=== PATIENT | female | born 1945 | race Caucasian/White ===

== ENCOUNTER 2022-04-04 14:54 | Inpatient (IN) ==
[2022-04-04] MEDS ORDERED: DOCUSATE SODIUM 100 MG CAP PO PRN (21:48)
[2022-04-04] MEDS ORDERED: MAGNESIUM HYDROXIDE SUSP 30 ML UDC PO PRN (21:48)
[2022-04-04] MEDS ORDERED: GLUCOSE 40% GEL 15 GM TUBE PO PRN (21:48)
[2022-04-04] MEDS ORDERED: oxyCODONE HCL IR 5 MG TAB (IMMEDIATE RELEASE) PO PRN (21:48)
[2022-04-04] MEDS ORDERED: MoRPHine SULFATE 2 MG/ML CARP IV PRN (21:48)
[2022-04-04] MEDS ORDERED: DEXTROSE 50% 50 ML SYRINGE IV PRN (21:48)
[2022-04-04] MEDS ORDERED: GLUCAGON FOR INJ 1 MG VIAL SQ PRN (21:48)
[2022-04-04] MEDS ORDERED: GLUCOSE 10 TAB/TUBE PO PRN (21:48)
[2022-04-04] MEDS ORDERED: NALOXONE HCL 0.4 MG/1 ML VIAL/CARP IV PRN (21:48)
[2022-04-04] MEDS ORDERED: ACETAMINOPHEN 325 MG TAB PO PRN (21:48)
[2022-04-04] MEDS ORDERED: MoRPHine SULFATE 4 MG/ML 1 ML CARP\\VIAL IV PRN (21:48)
[2022-04-04] MEDS ORDERED: ONDANSETRON INJ 2 MG/ML 2 ML VIAL IV PRN (21:48)
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
[2022-04-04] MEDS ORDERED: LACTATED RINGER'S 1,000 ML IV SCH (22:00)
[2022-04-04] MEDS ORDERED: Patient's ALLERGY Info needs ENTERED SCH (22:30)
[2022-04-04] MEDS ORDERED: LANTUS PER UNIT CHARGE SQ STA (22:55)
[2022-04-05] MEDS ORDERED: Nursing to Pharmacy Communication SCH ×2 (01:00→22:45)
[2022-04-05 01:01] LABS: Appearance Urine Clear (Clear); Bacteria Urine Automated Negative (Negative); Bilirubin Urine Negative (Negative); Blood Urine 2+ (Negative); Color Urine Yellow; Epithelial Cell Urine Auto 20-30 /lpf (0-5); Glucose Urine UA 3+ (Negative); Ketones Urine 3+ (Negative); Leukocyte Esterase Urine Trace (Negative); Nitrite Urine Negative (Negative); Protein Urine Negative (Negative); Specific Gravity Urine 1.024 (1.000-1.030); Urobilinogen Urine Negative (Negative)
[2022-04-05] MEDS: INSULIN ASPART PER UNIT SC SCH ×4 (06:28→22:25)
[2022-04-05 07:30] LABS: Basophils # (auto) 0.04 K/uL (0-0.2); Basophils % (auto) 0.6 %; Eosinophils # (auto) 0.09 K/uL (0-0.50); Eosinophils % (auto) 1.4 %; Hematocrit (blood only) 34.2 % (34.1-44.9); Hemoglobin 11.6 g/dl (12.0-16.0); Immature Granulocytes # (auto) 0.05 K/uL (0.00-0.02); Immature Granulocytes % (auto) 0.8 %; Lymphocytes # (auto) 0.79 K/uL (1.2-3.4); Lymphocytes % (auto) 12.5 %; Mean Corpuscular Hemoglobin 31.3 pg (25.0-34.0); Mean Corpuscular Hgb Conc 33.9 g/dL (32.0-36.0); Mean Corpuscular Volume 92.2 fL (80.0-100.0); Mean Platelet Volume 10.5 fL (9.4-12.3); Monocytes # (auto) 0.87 K/uL (0.24-0.82); Monocytes % (auto) 13.8 %; Neutrophils # (auto) 4.48 K/uL (1.4-6.5); Neutrophils % (auto) 70.9 %; Platelet Count 178 K/uL (130-400); RDW Coefficient of Variation 12.5 % (11.5-14.5); RDW Standard Deviation 41.4 fL (36.4-46.3); Red Blood Count 3.71 M/uL (3.93-5.22); White Blood Count 6.32 K/ul (4.8-10.8)
[2022-04-05] MEDS ORDERED: INSULIN ASPART PER UNIT SC SCH (07:30)
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
[2022-04-05 07:57] LABS: BUN Creatinine Ratio 19.7 (10-20); Calcium 9.8 mg/dl (8.5-10.1); Creatinine Clr Calc Pharmacy 59.1 ml/min; Est GFR (African American) 98.8 ml/min; Est GFR (Non-African American) 85.2 ml/min; Potassium 3.7 mmol/L (3.5-5.1)
--- NOTE | 2022-04-05 08:02 | Hospitalist Progress Note ---
Date of Service April 05, 2022 Assessment & Plan (1) Closed left hip fracture: Plan: 77yo female with history of DM, HTN presenting from outside facility with left intertrochanteric hip fracture following a ground level fall. Patient states that she has poor balance and falls on occasion. Pain is well controlled. Neurovascularly intact. Images to be loaded to [employer] Type/screen Ortho consulted NPO for L trochanteric femoral nailing Pain control, antiemetics prn Bowel regimen -- colace, senna prn Patient w/ nausea after foot reconstruction -- asked anesthesiology about possible need for scop patch. they will monitor/address Per RCRI criteria, patient is at low risk for cardiac complications following surgical intervention. She may proceed to surgery with no additional testing. PT/OT consults after surgery, likely need for rehab. Monitor evals/alert CM as needed (2) Hypertension: Plan: Blood pressure mildly elevated at 163/78. No symptoms. Patient takes Lisinopril 5mg daily Holding lisinopril for now, pain control Monitor, resume lisinopril in AM if BP/cr acceptable (3) Diabetes: Plan: Elevated blood sugar on admit 237. Patient manages her diabetes with Metformin as well as Glyburide. believes her last A1c ~7 Hold outpatient meds and utilize ISS while inpatient, glargine 5u BID currently BSGs acceptable and monitor Monitor (4) Anemia: Plan: Chronic, hgb 11.6 -- will monitor Patient takes Fe supplementation at home but will hold acutely to prevent constipation Monitor CBC Plan Ppx - SCDs to bilateral LE, holding chemical for now but order after surgery NPO for surgery this afternoon Admission and Anticipated Discharge Date Admission Date: April 04, 2022 Subjective Patient evaluated this morning. Seen by orthopedics, awaiting surgery this afternoon. Not having much pain at all resting in bed but increased with movement/attempts at standing to her left hip. Passing gas but no BM. Not much to eat last 2 days due to current issue. Discussed PT/OT after surgery and possible rehab pending course. No fever/chills, chest pain, shortness of breath, abdominal pain, nausea or vomiting. Of note, patient with prior foot reconstruction and had nausea after/vomiting --> contacted Dr Hylton from anesthesiology to consider scopolamine patch vs alte rnative in operative period. They will address when they get her down for surgery. Believes her last A1c was in the 7s possibly, not on insulin therapy. Questions/concerns addressed at this time. Review of Systems Review of Systems: All systems reviewed & are unremarkable except as noted in HPI & below Physical Exam Physical Exam: General: WD/WN female resting comfortable in bed, NAD HEENT: head atraumatic, normocephalic, trachea midline without deviation, mmm Resp: CTAB, no w/c/r, on room air CV: RRR, no m/r/g, no calf edema/tenderness, cap refill wnl GI: +BS, soft, nontender : russell with clear yellow urine draining MSK/Neuro: left lower extremity shortened and externally rotated. no rom taken, mild L knee effusion/non-tender. NVI, pulses palpable, calves nontender Psych: aox3 skin: warm, dry Results & Data Results & Data ([facility]) Vital Signs (Past 12 Hours) Vital Signs Temp Pulse Resp BP Pulse Ox Pulse Ox O2 Del Method 04/05/22 07:33 37.1 C 85 16 150/78 H 94 Room Air 04/05/22 05:50 93 04/04/22 21:49 95 04/04/22 23:22 36.7 C 86 18 163/78 H 93 Room Air 04/04/22 21:00 37 C 16 172/91 H 95 Room Air O2 Del Method 04/05/22 07:33 04/05/22 05:50 Room Air 04/04/22 21:49 Room Air 04/04/22 23:22 04/04/22 21:00 Laboratory Results 04/05/22 04/05/22 04/05/22 Range/Units 07:05 07:05 07:05 WBC 6.32 (4.8-10.8) K/ul RBC 3.71 L (3.93-5.22) M/uL Hgb 11.6 L (12.0-16.0) g/dl Hct 34.2 (34.1-44.9) % MCV 92.2 (80.0-100.0) fL MCH 31.3 (25.0-34.0) pg MCHC 33.9 (32.0-36.0) g/dL RDW Std Deviation 41.4 (36.4-46.3) fL RDW Coeff of Fabiana 12.5 (11.5-14.5) % Plt Count 178 (130-400) K/uL MPV 10.5 (9.4-12.3) fL Immature Gran % (Auto) 0.8 % Neut % (Auto) 70.9 % Lymph % (Auto) 12.5 % [place] % (Auto) 13.8 % Eos % (Auto) 1.4 % Baso % (Auto) 0.6 % Neut # (Auto) 4.48 (1.4-6.5) K/uL Lymph # (Auto) 0.79 L (1.2-3.4) K/uL [place] # (Auto) 0.87 H (0.24-0.82) K/uL Eos # (Auto) 0.09 (0-0.50) K/uL Baso # (Auto) 0.04 (0-0.2) K/uL Immature Gran # (Auto) 0.05 H (0.00-0.02) K/uL PT 11.0 (9.0-12.0) Seconds INR 1.0 (0.9-1.1) Sodium 138 (136-145) mmol/L Potassium 3.7 (3.5-5.1) mmol/L Chloride 104 (98-107) mmol/L Carbon Dioxide 27 (21-32) mmol/L Anion Gap 7 (3-11) BUN 13 (6-23) mg/dl Creatinine 0.66 (0.6-1.2) mg/dl Est Cr Clr Drug Dosing 59.1 ml/min Est GFR ( Amer) 98.8 ml/min Est GFR (Non-Af Amer) 85.2 ml/min BUN/Creatinine Ratio 19.7 (10-20) Glucose 167 H (70-99(Fasting)) mg/dl POC Glucose (70-99) mg/dl Calcium 9.8 (8.5-10.1) mg/dl Urine Color Urine Appearance (Clear) Urine pH (4.5-7.5) Ur Specific [place] (1.000-1.030) Urine Protein (Negative) Urine Glucose (UA) (Negative) Urine Ketones (Negative) Urine Blood (Negative) Urine Nitrite (Negative) Urine Bilirubin (Negative) Urine Urobilinogen (Negative) Ur Leukocyte Esterase (Negative) Urine WBC (Auto) (0-5) /hpf Urine RBC (Auto) (0-4) /hpf U Hyaline Cast (Auto) (0-5) /lpf U Epithel Cells (Auto) (0-5) /lpf Urine Bacteria (Auto) (Negative) Blood Type Antibody Screen 04/05/22 04/05/22 04/04/22 Range/Units 07:05 06:03 23:20 WBC (4.8-10.8) K/ul RBC (3.93-5.22) M/uL Hgb (12.0-16.0) g/dl Hct (34.1-44.9) % MCV (80.0-100.0) fL MCH (25.0-34.0) pg MCHC (32.0-36.0) g/dL RDW Std Deviation (36.4-46.3) fL RDW Coeff of Fabiana (11.5-14.5) % Plt Count (130-400) K/uL MPV (9.4-12.3) fL Immature Gran % (Auto) % Neut % (Auto) % Lymph % (Auto) % [place] % (Auto) % Eos % (Auto) % Baso % (Auto) % Neut # (Auto) (1.4-6.5) K/uL Lymph # (Auto) (1.2-3.4) K/uL [place] # (Auto) (0.24-0.82) K/uL Eos # (Auto) (0-0.50) K/uL Baso # (Auto) (0-0.2) K/uL Immature Gran # (Auto) (0.00-0.02) K/uL PT (9.0-12.0) Seconds INR (0.9-1.1) Sodium (136-145) mmol/L Potassium (3.5-5.1) mmol/L Chloride (98-107) mmol/L Carbon Dioxide (21-32) mmol/L Anion Gap (3-11) BUN (6-23) mg/dl Creatinine (0.6-1.2) mg/dl Est Cr Clr Drug Dosing ml/min Est GFR ( Amer) ml/min Est GFR (Non-Af Amer) ml/min BUN/Creatinine Ratio (10-20) Glucose (70-99(Fasting)) mg/dl POC Glucose 169 H (70-99) mg/dl Calcium (8.5-10.1) mg/dl Urine Color Yellow Urine Appearance Clear (Clear) Urine pH 6.0 (4.5-7.5) Ur Specific [place] 1.024 (1.000-1.030) Urine Protein Negative (Negative) Urine Glucose (UA) 3+ H (Negative) Urine Ketones 3+ H (Negative) Urine Blood 2+ H (Negative) Urine Nitrite Negative (Negative) Urine Bilirubin Negative (Negative) Urine Urobilinogen Negative (Negative) Ur Leukocyte Esterase Trace H (Negative) Urine WBC (Auto) 10-30 H (0-5) /hpf Urine RBC (Auto) 10-30 H (0-4) /hpf U Hyaline Cast (Auto) 1-5 (0-5) /lpf U Epithel Cells (Auto) 20-30 H (0-5) /lpf Urine Bacteria (Auto) Negative (Negative) Blood Type AB Positive Antibody Screen NEGATIVE 04/04/22 Range/Units 22:29 WBC (4.8-10.8) K/ul RBC (3.93-5.22) M/uL Hgb (12.0-16.0) g/dl Hct (34.1-44.9) % MCV (80.0-100.0) fL MCH (25.0-34.0) pg MCHC (32.0-36.0) g/dL RDW Std Deviation (36.4-46.3) fL RDW Coeff of Fabiana (11.5-14.5) % Plt Count (130-400) K/uL MPV (9.4-12.3) fL Immature Gran % (Auto) % Neut % (Auto) % Lymph % (Auto) % [place] % (Auto) % Eos % (Auto) % Baso % (Auto) % Neut # (Auto) (1.4-6.5) K/uL Lymph # (Auto) (1.2-3.4) K/uL [place] # (Auto) (0.24-0.82) K/uL Eos # (Auto) (0-0.50) K/uL Baso # (Auto) (0-0.2) K/uL Immature Gran # (Auto) (0.00-0.02) K/uL PT (9.0-12.0) Seconds INR (0.9-1.1) Sodium (136-145) mmol/L Potassium (3.5-5.1) mmol/L Chloride (98-107) mmol/L Carbon Dioxide (21-32) mmol/L Anion Gap (3-11) BUN (6-23) mg/dl Creatinine (0.6-1.2) mg/dl Est Cr Clr Drug Dosing ml/min Est GFR ( Amer) ml/min Est GFR (Non-Af Amer) ml/min BUN/Creatinine Ratio (10-20) Glucose (70-99(Fasting)) mg/dl POC Glucose 237 H (70-99) mg/dl Calcium (8.5-10.1) mg/dl Urine Color Urine Appearance (Clear) Urine pH (4.5-7.5) Ur Specific [place] (1.000-1.030) Urine Protein (Negative) Urine Glucose (UA) (Negative) Urine Ketones (Negative) Urine Blood (Negative) Urine Nitrite (Negative) Urine Bilirubin (Negative) Urine Urobilinogen (Negative) Ur Leukocyte Esterase (Negative) Urine WBC (Auto) (0-5) /hpf Urine RBC (Auto) (0-4) /hpf U Hyaline Cast (Auto) (0-5) /lpf U Epithel Cells (Auto) (0-5) /lpf Urine Bacteria (Auto) (Negative) Blood Type Antibody Screen PG Care Time/CCT Total # of Minutes Spent Total Time Spent with Patient: Total time spent is greater than 50% in coordination of care (as documented) at patient's floor/unit and/or counseling patient: Coding Level of Care Code 86338 Subseq Hosp Care Lvl 2 Diagnoses Closed left hip fracture S72.002A Hypertension I10 Diabetes E11.9 Anemia D64.9
[2022-04-05] MEDS: LANTUS PER UNIT CHARGE SQ SCH ×2 (08:46→22:25)
--- NOTE | 2022-04-05 15:46 | Anesthesiology Consultation ---
Date of Service April 05, 2022 Assessment & Plan Chart Review Chart Review: Acceptable Risk for Surgery and Patient NOT seen in Pre Admission Testing Consults Requested none ASA ASA3 Proposed Anesthesia Anesthesia Type: General Risk / Benefits Reviewed With: PT / POA / Parent / Guardian, Accepts Plan and Informed Consent Obtained Additional Comments: covid test neg. History Surgery Operation Date: 04/05/22 09:20 Proposed Procedures p Left Troch Nailing - Eliel Franklin M.D. Height/Weight Height: 5 ft 1 in Weight: 59.506 kg Allergies Allergy/AdvReac Type Severity Reaction Status Date / Time No Known Allergies Allergy Unverified 04/04/22 22:40 Medications Home Medications Medication Instructions Recorded Confirmed Last Taken Aspir-81 81 mg PO DAILY 04/04/22 04/04/22 04/03/22 atorvastatin 20 mg tablet 20 mg PO HS 04/04/22 04/05/22 Unknown glimepiride 4 mg tablet 4 mg PO BID 04/04/22 04/04/22 Unknown latanoprost 0.005 % eye drops 1 drp ophthalmic (eye) HS 04/04/22 04/04/22 Unknown lisinopril 5 mg tablet 5 mg PO DAILY 04/04/22 04/04/22 Unknown metformin 1,000 mg tablet 1,000 mg PO BID 04/04/22 04/04/22 Unknown multivitamin 1 tab PO DAILY 04/04/22 04/04/22 Unknown Active Medications Generic Name Dose Route Start Last Admin Trade Name Freq PRN Reason Stop Dose Admin Acetaminophen 650 mg 04/04/22 21:48 04/04/22 23:16 Acetaminophen 325 Mg Tab PO 05/04/22 21:47 650 mg Q6H PRN Administration MILD pain 1,2,3 & Pre PT Insulin Aspart 0 units 04/05/22 06:00 04/05/22 12:17 Insulin Aspart Per Unit SC 05/05/22 05:59 Not Given Q6 BRANDON Insulin Glargine 5 units 04/05/22 09:00 04/05/22 08:46 Lantus Per Unit Charge SQ 05/05/22 08:59 5 units BID BRANDON Administration NPO Date Last Intake of Fluids: 04/04/22 Time Last Intake of Fluids: 14:30 Date Last Intake of Solids: 04/04/22 Time Last Intake of Solids: 14:30 Past Medical History Medical History Anemia Diabetes History of postoperative nausea Hypertension hyperlipidemia Exercise / Class Metabolic Activity III < 4 Walking/Shop/Light housework Past Family History Family History Other Cancer Past Surgical History Surgical History History of foot surgery Past Anesthesia History No Hx of Anesthesia Complications and No Family Hx of Anesthesia Complications History of PONV No Hx of Motion Sickness and History of PONV Social History Smoking Status: Never smoker Hx Alcohol Use: No Hx Substance Use: No Physical Exam Vital Signs Last Vital Signs Temp 37.3 C 04/05/22 15:24 Pulse 95 H 04/05/22 15:24 Resp 18 04/05/22 15:24 BP 144/90 H 04/05/22 15:24 Pulse Ox 95 04/05/22 15:24 O2 Del Method 04/05/22 15:24 Testing Laboratory Results 04/05/22 07:05 04/05/22 07:05 PT 11.0 Seconds (9.0-12.0) 04/05/22 07:05 INR 1.0 (0.9-1.1) 04/05/22 07:05 Urine Color Yellow 04/04/22 23:20 Urine Appearance Clear (Clear) 04/04/22 23:20 Urine pH 6.0 (4.5-7.5) 04/04/22 23:20 Ur Specific [place] 1.024 (1.000-1.030) 04/04/22 23:20 Urine Protein Negative (Negative) 04/04/22 23:20 Urine Glucose (UA) 3+ (Negative) H 04/04/22 23:20 Urine Ketones 3+ (Negative) H 04/04/22 23:20 Urine Nitrite Negative (Negative) 04/04/22 23:20 Ur Leukocyte Esterase Trace (Negative) H 04/04/22 23:20 Urine WBC (Auto) 10-30 /hpf (0-5) H 04/04/22 23:20 Urine RBC (Auto) 10-30 /hpf (0-4) H 04/04/22 23:20 U Hyaline Cast (Auto) 1-5 /lpf (0-5) 04/04/22 23:20 U Epithel Cells (Auto) 20-30 /lpf (0-5) H 04/04/22 23:20 Urine Bacteria (Auto) Negative (Negative) 04/04/22 23:20 Blood Type AB Positive 04/05/22 07:05 Antibody Screen NEGATIVE 04/05/22 07:05 04/05/22 04/05/22 12:00 06:03 POC Glucose 140 H 169 H Electrocardiogram Date: 04/04/22 Findings: + ST @ (at 119) Chest X-Ray Date: 04/04/22 Findings: + NAD and + other (large H/H)
[2022-04-05] MEDS ORDERED: LIDOCAINE 1% LOCAL 20 ML VIAL ONE (16:34)
[2022-04-05] MEDS ORDERED: BUPIVACAINE 0.5 % 5 MG/1 ML MPF 30ML VIAL ONE (16:34)
[2022-04-05] MEDS ORDERED: ceFAZolin 2,000 MG/15 ML IV PUSH IV ONE (17:12)
[2022-04-05] MEDS ORDERED: fentaNYL citrate 100 MCG/2 ML VIAL ONE ×2 (17:25→18:19)
[2022-04-05] MEDS ORDERED: PROPOFOL IV EMULSION 10 MG/ML 20 ML VIAL IV ONE (17:25)
[2022-04-05] MEDS ORDERED: MIDAZOLAM HCL 1 MG/ML 2ML VIAL ONE (17:26)
[2022-04-05] MEDS ORDERED: SUCCINYLCHOLINE CHLORIDE 20 MG/ML 10 ML VIAL IV ONE (18:09)
[2022-04-05] MEDS ORDERED: CISATRACURIUM BESYLATE IV SOLN 2 MG/ML 10 ML VIAL IV ONE (18:09)
[2022-04-05] MEDS ORDERED: PHENYLEPHRINE 100MCG/ML 5ML SYR ONE (18:10)
--- NOTE | 2022-04-05 18:20 | Communication Note ---
Date of Service: April 05, 2022 CDS Query Age-related osteoporotic fracture of the left hip NPO for surgical correction Vit D level in AM
[2022-04-05] MEDS ORDERED: ONDANSETRON INJ 2 MG/ML 2 ML VIAL ONE (18:37)
[2022-04-05] MEDS ORDERED: DEXAMETHASONE SOD INJ 4 MG/ML VIAL ONE (18:38)
[2022-04-05] MEDS ORDERED: NEOSTIGMINE METHYLSULFATE 1 MG/ML 10ML VIAL ONE (18:42)
[2022-04-05] MEDS ORDERED: GLYCOPYRROLATE 0.2 MG/ML VIAL ONE (18:42)
--- NOTE | 2022-04-05 19:05 | Operative Report ---
Post Operative Report Pre & Post Diagnosis Operation Date: 04/05/22 09:20 Pre-Op Diagnosis: Left hip intertrochanteric femur fracture Post-Op Diagnosis: Left hip intertrochanteric femur fracture I identified the patient and participated in the time-out.: Yes Procedure Operation Date: 04/05/22 09:20 Actual Procedures Left hip short cephalomedullary nailing for intertrochanteric femur fracture (25535) - Eliel Franklin M.D. Surgeon Eliel Franklin Program Manager Environmental Planning None Estimated Blood Loss 50 Findings Consistent with Post-Op Diagnosis Specimens None Drains None Anesthesia Type General Complications none Disposition Disposition: Recovery Room Indications Ms. Quevedo is a 77-year-old female who injured her left hip during a ground- level fall. History, clinical exam, and imaging were consistent with the above diagnosis. Risks, benefits, and alternatives of surgery were explained in detail. The patient understood all this and wished to proceed. Description of Procedure Implants: Synthes Short (170mm) 130 degree 11mm Trochanteric Fixation Nail, 11mm helical blade, 5mm distal locking screw Patient was identified in the preoperative holding area. Operative extremity was marked. Patient was then brought back to the operating room, and general anesthesia was induced without complication. Appropriate weight-based dose of Ancef was infused intravenously for antibiotic prophylaxis. Patient was then positioned on the fracture table with the traction apparatus. The nonoperative hip was flexed and placed into the well leg mosquera. Longitudinal traction was applied to the operative hip. Fracture reduction was then performed under fluoroscopic imaging. Once acceptable reduction had been achieved, the left hip was then prepped and draped in a standard sterile fashion using Chlorhexidine prep. I first made an incision just proximal to the greater trochanter in line with the femoral shaft axis, and split the fibers of the iliotibial band. I then bluntly palpated down to the greater trochanter and inserted the guidewire down to the tip of the greater trochanter. It was appropriately positioned on AP and lateral images, and then driven into the proximal femur. I then inserted the soft tissue protector down to the tip of the greater trochanter and then passed the entry reamer over top of the guidewire. It was advanced down towards the lesser trochanter to open the proximal femur. I then inserted the Synthes short TFN attached to the targeting arm into the proximal femur. I malleted it down to an appropriate depth for proper trajectory of the helical blade into the femoral head. Once the nail was at an appropriate depth, I then attached the targeting guide for the helical blade onto the targeting arm. Incision was made in line with the guide through the skin and iliotibial band. The guide sleeve was placed against the lateral cortex of the femur. Guidewire was then inserted through the guide and up into the femoral neck and head. I verified proper placement and trajectory under both AP and lateral images. I advanced the guidewire to the subchondral bone in the femoral head and verified proper depth on orthogonal images. I then measured the depth off of the guidewire. The drill for the helical blade was then set at an appropriate level to match the measured length. The drill was then advanced to the set depth. An appropriate length helical blade was selected and malleted into place over the guidewire. The fracture site was then compressed through the helical blade with the compression ring. I then deployed the set screw proximally to prevent rotation of the helical blade during fracture compression. Fracture compression was then applied using the compression ring on the helical blade targeting sleeve. I then made an incision for the distal locking screw in line with the drill guide through skin and iliotibial band. I then placed the drill sleeve down on the la teral cortex of the femur and drilled through the distal locking hole. Screw length was then measured off of the calibrated drill bit, and an appropriate length was selected and then inserted. The screw length was verified under fluoroscopic imaging. Final fluoroscopic images were then obtained to ensure proper hardware placement, screw length, and fracture reduction. The wounds were then copiously irrigated with sterile saline. I then closed the iliotibial band and deep dermal tissue with #0 Vicryl suture. Subcutaneous tissues closed with 3-0 Vicryl suture, and skin was closed with phil. Sterile dressings were then applied with Xeroform, sterile gauze, and foam tape. Drapes were then removed and traction apparatus was disconnected. The patient was awakened from general anesthesia, transferred over to the stretcher, and taken to the Post Anesthesia Care Unit in stable condition. There were no immediate complications from the procedure. I was present and scrubbed for the entire procedure. I attest to the content of the Intraoperative Record and any orders documented therein. Any exceptions are noted below.
[2022-04-05] MEDS ORDERED: ePHEDrine sulfate 50 MG/ML AMP IV PRN (19:10)
[2022-04-05] MEDS ORDERED: PROMETHAZINE HCL 12.5 MG in SODIUM CHLORIDE 0.9% 50 ML IV PRN (19:10)
[2022-04-05] MEDS ORDERED: ATROPINE SULFATE 0.1 MG/ML 10ML SYR IV PRN (19:10)
[2022-04-05] MEDS ORDERED: NALOXONE HCL 0.4 MG/1 ML VIAL/CARP IV PRN (19:10)
[2022-04-05] MEDS ORDERED: FLUMAZENIL 0.1 MG/1 ML 10 ML VIAL IV PRN (19:10)
[2022-04-05] MEDS ORDERED: fentaNYL citrate 100 MCG/2 ML VIAL IV PRN (19:10)
[2022-04-05] MEDS ORDERED: ONDANSETRON INJ 2 MG/ML 2 ML VIAL IV PRN (19:10)
[2022-04-05] MEDS ORDERED: LABETALOL HCL IV 5 MG/ML 20ML IV PRN (19:10)
--- NOTE | 2022-04-05 19:49 | Anesthesiology Progress Note ---
Date of Service April 05, 2022 Anesthesia Post Procedure Vital Signs Vital Signs: Temp Pulse Pulse Resp BP Pulse Ox Pulse Ox 04/05/22 19:40 94 H 19 155/85 H 97 04/05/22 19:30 92 H 23 155/91 H 97 04/05/22 19:20 99 H 21 145/75 H 90 04/05/22 19:10 97 H 21 163/81 H 95 04/05/22 19:02 36.5 C 103 H 23 155/73 H 97 04/05/22 15:24 37.3 C 95 H 18 144/90 H 95 04/05/22 07:33 37.1 C 85 16 150/78 H 94 04/05/22 05:50 93 04/04/22 21:49 95 04/04/22 23:22 36.7 C 86 18 163/78 H 93 04/04/22 21:00 37 C 16 172/91 H 95 O2 Del Method O2 Del Method O2 Flow Rate 04/05/22 19:40 Nasal Cannula 2 04/05/22 19:30 Nasal Cannula 2 04/05/22 19:20 Room Air 04/05/22 19:10 Oxymask 4 04/05/22 19:02 Oxymask 4 04/05/22 15:24 Room Air 04/05/22 07:33 Room Air 04/05/22 05:50 Room Air 04/04/22 21:49 Room Air 04/04/22 23:22 Room Air 04/04/22 21:00 Room Air Pain Intensity Left Hip: Pain Intensity: 3 Transfer of Care Handoff Completed per policy Notes Mental Status: alert / awake / arousable Patient Amnestic to Procedure: Yes Nausea / Vomiting: adequately controlled Pain: adequately controlled Airway Patency, RR, SpO2: stable & adequate BP & HR: stable & adequate Hydration State: stable & adequate Anesthetic Complications: no major complications apparent and Pt Satisfied with anesthetic care
--- NOTE | 2022-04-05 19:54 | XRay Report ---
LEFT HIP 2 VIEWS CLINICAL HISTORY: Postoperative examination. FINDINGS: AP and crosstable lateral views of the left hip are compared to study dated 04/04/2022. The skeletal structures are osteopenic. There has been intertrochanteric and intramedullary nail fixation of a comminuted intertrochanteric fracture with confucianism of near-anatomic alignment. A single cor tical lag screw transfixes the distal end of the nail. No new fracture is identified. The visualized left hemipelvis appears intact. Mild degenerative joint space narrowing is noted in the left hip. Ski n clips, soft tissue gas, and edema overlying the left hip are expected postoperative changes. IMPRESSION: Expected postoperative findings status post open reduction and internal fixation of a lef t proximal femoral fracture. Electronically signed by: Tim Claire M.D. 04/05/2022 7:53 PM
--- NOTE | 2022-04-05 19:56 | Fluoroscopy Report ---
INTRAOPERATIVE RADIOGRAPHS CLINICAL HISTORY: Open reduction and internal fixation of the left proximal femur. Fluoroscopy time: 64 seconds. FINDINGS: 4 spot fluoroscopic views of the left proximal femur are compared to radiographs dated 04/04. Intertrochanteric and intramedullary nails have been placed transfixing an intertrochanteric f racture of the left proximal femur with shinto of near-anatomic alignment. A single cortical lag screw transfixes the distal end of the intramedullary nail. The orthopedic hardware appears intact. IMPRESSION: Intraoperative images from open reduction and internal fixation of a left proximal femora l fracture as above. Electronically signed by: Tim Claire M.D. 04/05/2022 7:54 PM
[2022-04-05] MEDS: ATORVASTATIN 20 MG TAB PO SCH (22:06)
[2022-04-05] MEDS: LATANOPROST 0.005% OP SOLN 2.5 ML BTL OP SCH (22:06)
[2022-04-05] MEDS: DOCUSATE SODIUM/SENNA 50/8.6MG TAB PO SCH (22:06)
[2022-04-05] MEDS: ASPIRIN 81 MG ECTAB PO SCH (22:57)
[2022-04-06] MEDS ORDERED: INSULIN ASPART PER UNIT SC SCH
[2022-04-06 06:22] LABS: Hematocrit (blood only) 35.1 % (34.1-44.9); Hemoglobin 11.9 g/dl (12.0-16.0); Mean Corpuscular Hemoglobin 31.3 pg (25.0-34.0); Mean Corpuscular Hgb Conc 33.9 g/dL (32.0-36.0); Mean Corpuscular Volume 92.4 fL (80.0-100.0); Mean Platelet Volume 10.5 fL (9.4-12.3); Platelet Count 204 K/uL (130-400); RDW Coefficient of Variation 12.2 % (11.5-14.5); RDW Standard Deviation 41.6 fL (36.4-46.3); White Blood Count 10.88 K/ul (4.8-10.8)
[2022-04-06 07:00] LABS: BUN Creatinine Ratio 20.3 (10-20); Calcium 9.6 mg/dl (8.5-10.1); Creatinine Clr Calc Pharmacy 52.7 ml/min; Est GFR (African American) 90.6 ml/min; Est GFR (Non-African American) 78.1 ml/min; Magnesium 1.2 mg/dl (1.7-2.4)
[2022-04-06] MEDS: ASPIRIN 81 MG ECTAB PO SCH ×2 (08:29→20:34)
--- NOTE | 2022-04-06 08:33 | Hospitalist Progress Note ---
Date of Service April 06, 2022 Assessment & Plan (1) Closed left hip fracture: Plan: 77yo female with history of DM, HTN presenting from outside facility with left intertrochanteric hip fracture following a ground level fall . Patient states that she has poor balance and falls on occasion (check B12 w/ am labs). 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 EBL 50cc DVT prophylaxis ASA 81mg BID H/h 11.6/34.2 --> 11.9/35.1 and stable -- chronic anemia on Fe therapy (resume once having BM) WBC elevation likely 2nd to steroids/surgery, afebrile Vit D level checked, low normal 31-- placed on oral supp, cont at d/c Pain control, antiemetics prn Bowel regimen -- colace, senna prn (last BM 04/03 reported). add julian miralax PT/OT consulted -- likely to need rehab. CM following (2) Hypertension: Plan: Blood pressure mildly elevated on admit, 2nd to pain On lisinopril 5mg daily Holding for now given BP 120/77 Resume in AM pending BP but will hold for now (3) Diabetes: Plan: Elevated blood sugar on admit 237. Typically on Metformin as well as Glyburide FLAG SIGNALER, believes her last A1c ~7 Hold outpatient meds and utilize ISS while inpatient, glargine 5u BID currently Tightened ISS while inpatient as sugars initially controlled but steroids w/ surgery and dextrose in magnesium replacement as BSgs in 200s this afternoon Continue to monitor (4) Anemia: Plan: Chronic, hgb stable post-op Resume Fe in next 24-48 hours once bowels moving CBC in AM (5) Hypomagnesemia: Plan: Mag checked w/ am labs in elderly patient w/ fracture to see about replacement/prevention of afib post-op as HRs recorded in low 100s. EKG w/ sinus tach 102bpm Patient asymptomatic, no palpitations/CP/SOb, not hypoxic or hypotensive (does endorse cramps, no evidence for DVT currently but monitor) MAG LOW 1.2--> IV replacement ordered . Monitor level in AM Plan Ppx - SCDs to bilateral LE, ASA 81mg BID Dispo: will require rehab at discharge, bed not until next week Admission and Anticipated Discharge Date Admission Date: April 04, 2022 Subjective Patient evaluated this morning. Doing well. No pain at rest, some with ambulation. Improving and controlled with ordered medications. Discussed magnesium level -- patient does endorse cramps to her legs day prior but labs added to am and not yesterday and discussed oral replacement. Eating/drinking and passing gas but no BM. Discussed mag should help assist with bowel movement as well. Not yet worked with therapy but she is agreeable, and states her son also would like her to undergo inpatient rehab at d/c before going home. No chest pain, shortness of breath, palpitations, abdominal pain, nausea. She did state she had a period when she woke up where she thought her head was pounding but that resolved and she thinks maybe she was dreaming. EKG w/ sinus tachy 108bpm, not hypotensive, not tachycardia or hypoxic. Review of Systems Review of Systems: All systems reviewed & are unremarkable except as noted in HPI & below Physical Exam Physical Exam: General: WD/WN female resting comfortable in bed, NAD HEENT: head atraumatic, normocephalic, trachea midline without deviation, mmm Resp: CTAB, no w/c/r, on room air CV: Rate 98bpm, regular, no m/r/g, no calf edema/tenderness, cap refill wnl GI: +BS, soft, nontender : russell with clear yellow urine draining MSK/Neuro: dressings to lateral L hip c/d, scan drainage noted, mild tenderness, NVI, pulses palpable and toes mobile, calves nontender Psych: aox3 skin: warm, dry Results & Data Results & Data ([facility]) Vital Signs (Past 12 Hours) Vital Signs Temp Pulse Pulse Pulse Resp BP BP 04/06/22 07:45 37.1 C 108 H 22 120/77 04/05/22 23:00 04/06/22 03:15 36.9 C 111 H 17 125/68 04/05/22 22:18 37 C 102 H 16 157/89 H 04/05/22 21:00 04/05/22 21:30 37.0 C 83 17 167/68 H 04/05/22 21:00 37.0 C 99 H 17 143/83 H 04/05/22 20:26 37.0 C 100 H 17 151/71 H Pulse Ox Pulse Ox O2 Del Method O2 Del Method O2 Flow Rate 04/06/22 07:45 96 Room Air 04/05/22 23:00 Nasal Cannula 2 04/06/22 03:15 96 Nasal Cannula 2 04/05/22 22:18 95 04/05/22 21:00 90 Room Air 04/05/22 21:30 97 Nasal Cannula 2 04/05/22 21:00 97 Nasal Cannula 2 04/05/22 20:26 91 Nasal Cannula 2 Laboratory Results 04/06/22 04/06/22 04/06/22 Range/Units 06:07 06:07 06:07 WBC 10.88 H (4.8-10.8) K/ul RBC 3.80 L (3.93-5.22) M/uL Hgb 11.9 L (12.0-16.0) g/dl Hct 35.1 (34.1-44.9) % MCV 92.4 (80.0-100.0) fL MCH 31.3 (25.0-34.0) pg MCHC 33.9 (32.0-36.0) g/dL RDW Std Deviation 41.6 (36.4-46.3) fL RDW Coeff of Fabiana 12.2 (11.5-14.5) % Plt Count 204 (130-400) K/uL MPV 10.5 (9.4-12.3) fL Sodium 134 L (136-145) mmol/L Potassium 5.0 D (3.5-5.1) mmol/L Chloride 101 (98-107) mmol/L Carbon Dioxide 24 (21-32) mmol/L Anion Gap 9 (3-11) BUN 15 (6-23) mg/dl Creatinine 0.74 (0.6-1.2) mg/dl Est Cr Clr Drug Dosing 52.7 ml/min Est GFR ( Amer) 90.6 ml/min Est GFR (Non-Af Amer) 78.1 ml/min BUN/Creatinine Ratio 20.3 H (10-20) Glucose 243 H (70-99(Fasting)) mg/dl POC Glucose (70-99) mg/dl Calcium 9.6 (8.5-10.1) mg/dl Magnesium 1.2 L (1.7-2.4) mg/dl 25-OH Vitamin D Total 31.0 (30-100) ng/ml Blood Type Antibody Screen 04/05/22 04/05/22 04/05/22 Range/Units 22:13 19:30 12:00 WBC (4.8-10.8) K/ul RBC (3.93-5.22) M/uL Hgb (12.0-16.0) g/dl Hct (34.1-44.9) % MCV (80.0-100.0) fL MCH (25.0-34.0) pg MCHC (32.0-36.0) g/dL RDW Std Deviation (36.4-46.3) fL RDW Coeff of Fabiana (11.5-14.5) % Plt Count (130-400) K/uL MPV (9.4-12.3) fL Sodium (136-145) mmol/L Potassium (3.5-5.1) mmol/L Chloride (98-107) mmol/L Carbon Dioxide (21-32) mmol/L Anion Gap (3-11) BUN (6-23) mg/dl Creatinine (0.6-1.2) mg/dl Est Cr Clr Drug Dosing ml/min Est GFR ( Amer) ml/min Est GFR (Non-Af Amer) ml/min BUN/Creatinine Ratio (10-20) Glucose (70-99(Fasting)) mg/dl POC Glucose 176 H 134 H 140 H (70-99) mg/dl Calcium (8.5-10.1) mg/dl Magnesium (1.7-2.4) mg/dl 25-OH Vitamin D Total (30-100) ng/ml Blood Type Antibody Screen 04/05/22 Range/Units 07:05 WBC (4.8-10.8) K/ul RBC (3.93-5.22) M/uL Hgb (12.0-16.0) g/dl Hct (34.1-44.9) % MCV (80.0-100.0) fL MCH (25.0-34.0) pg MCHC (32.0-36.0) g/dL RDW Std Deviation (36.4-46.3) fL RDW Coeff of Fabiaan (11.5-14.5) % Plt Count (130-400) K/uL MPV (9.4-12.3) fL Sodium (136-145) mmol/L Potassium (3.5-5.1) mmol/L Chloride (98-107) mmol/L Carbon Dioxide (21-32) mmol/L Anion Gap (3-11) BUN (6-23) mg/dl Creatinine (0.6-1.2) mg/dl Est Cr Clr Drug Dosing ml/min Est GFR ( Amer) ml/min Est GFR (Non-Af Amer) ml/min BUN/Creatinine Ratio (10-20) Glucose (70-99(Fasting)) mg/dl POC Glucose (70-99) mg/dl Calcium (8.5-10.1) mg/dl Magnesium (1.7-2.4) mg/dl 25-OH Vitamin D Total (30-100) ng/ml Blood Type AB Positive Antibody Screen NEGATIVE Diagnostic Findings Hip X-Ray 04/05/22 16:00 INTRAOPERATIVE RADIOGRAPHS CLINICAL HISTORY: Open reduction and internal fixation of the left proximal femur. Fluoroscopy time: 64 seconds. FINDINGS: 4 spot fluoroscopic views of the left proximal femur are compared to radiographs dated 04/04/2022. Intertrochanteric and intramedullary nails have been placed transfixing an intertrochanteric fracture of the left proximal femur with worship of near-anatomic alignment. A single cortical lag screw transfixes the distal end of the intramedullary nail. The orthopedic hardware appears intact. IMPRESSION: Intraoperative images from open reduction and internal fixation of a left proximal femoral fracture as above. Electronically signed by: Melany Claire M.D. 04/05/2022 7:54 PM Hip X-Ray 04/05/22 19:12 LEFT HIP 2 VIEWS CLINICAL HISTORY: Postoperative examination. FINDINGS: AP and crosstable lateral views of the left hip are compared to study dated 04/04/2022. The skeletal structures are osteopenic. There has been intertrochanteric and intramedullary nail fixation of a comminuted intertrochant melany fracture with worship of near-anatomic alignment. A single cortical lag screw transfixes the distal end of the nail. No new fracture is identified. The visualized left hemipelvis appears intact. Mild degenerative joint space narrowing is noted in the left hip. Skin clips, soft tissue gas, and edema overlying the left hip are expected postoperative changes. IMPRESSION: Expected postoperative findings status post open reduction and internal fixation of a left proximal femoral fracture. Electronically signed by: Melany Claire M.D. 04/05/2022 7:53 PM PG Care Time/CCT Total # of Minutes Spent Total Time Spent with Patient: Total time spent is greater than 50% in coordination of care (as documented) at patient's floor/unit and/or counseling patient: Coding Level of Care Code 28482 Subseq Hosp Care Lvl 2 Diagnoses Closed left hip fracture S72.002A Hypertension I10 Diabetes E11.9 Anemia D64.9 Hypomagnesemia E83.42
[2022-04-06] MEDS: INSULIN ASPART PER UNIT SC SCH ×4 (09:18→21:53)
[2022-04-06] MEDS: LANTUS PER UNIT CHARGE SQ SCH ×2 (09:19→21:54)
[2022-04-06] MEDS: MAGNESIUM SULFATE / D5W 1 GM/100 ML BAG IV SCH ×4 (09:40→15:08)
--- NOTE | 2022-04-06 09:59 | Orthopedic Progress Note ---
Date of Service April 06, 2022 Assessment & Plan (1) Closed left hip fracture: Plan: POD 1 s/p Left TFN PT/OT - TTWB LLE DVT prophylaxis - SCD's, FLOYD's, ASA po bid Pain management as written. DC planning - Possible need for Rehab vs SNF. Admission and Anticipated Discharge Date Admission Date: April 04, 2022 Supervising Physician Co-Signing Physician Notes Patient seen and examined. Agree with RAYMOND Gonzales's note as above. Pain is controlled. She has not worked with physical therapy yet. Remain toe-touch w eightbearing on her left leg. Discharge disposition based on how she does with therapy. She does live alone; likely will need SNF placement. Subjective POD 1 Pt lying in bed, awake, alert. Feeling better today. Having some pain with her hip getting OOB but is overall better Physical Exam Physical Exam: Dressings C/D/I. Thigh soft, NT. Calves soft, NT. NV intact. Toes mobile. Results & Data ([facility]) Vital Signs (Past 12 Hours) Vital Signs Temp Pulse Pulse Resp BP BP Pulse Ox 04/06/22 07:45 37.1 C 108 H 22 120/77 96 04/05/22 23:00 04/06/22 03:15 36.9 C 111 H 17 125/68 96 04/05/22 22:18 37 C 102 H 16 157/89 H 95 O2 Del Method O2 Flow Rate 04/06/22 07:45 Room Air 04/05/22 23:00 Nasal Cannula 2 04/06/22 03:15 Nasal Cannula 2 04/05/22 22:18 Laboratory Results Laboratory Results WBC 10.88 K/ul (4.8-10.8) H 04/06/22 06:07 RBC 3.80 M/uL (3.93-5.22) L 04/06/22 06:07 Hgb 11.9 g/dl (12.0-16.0) L 04/06/22 06:07 Hct 35.1 % (34.1-44.9) 04/06/22 06:07 MCV 92.4 fL (80.0-100.0) 04/06/22 06:07 MCH 31.3 pg (25.0-34.0) 04/06/22 06:07 MCHC 33.9 g/dL (32.0-36.0) 04/06/22 06:07 RDW Std Deviation 41.6 fL (36.4-46.3) 04/06/22 06:07 RDW Coeff of Fabiana 12.2 % (11.5-14.5) 04/06/22 06:07 Plt Count 204 K/uL (130-400) 04/06/22 06:07 MPV 10.5 fL (9.4-12.3) 04/06/22 06:07 Immature Gran % (Auto) 0.8 % 04/05/22 07:05 Neut % (Auto) 70.9 % 04/05/22 07:05 Lymph % (Auto) 12.5 % 04/05/22 07:05 [place] % (Auto) 13.8 % 04/05/22 07:05 Eos % (Auto) 1.4 % 04/05/22 07:05 Baso % (Auto) 0.6 % 04/05/22 07:05 Neut # (Auto) 4.48 K/uL (1.4-6.5) 04/05/22 07:05 Lymph # (Auto) 0.79 K/uL (1.2-3.4) L 04/05/22 07:05 [place] # (Auto) 0.87 K/uL (0.24-0.82) H 04/05/22 07:05 Eos # (Auto) 0.09 K/uL (0-0.50) 04/05/22 07:05 Baso # (Auto) 0.04 K/uL (0-0.2) 04/05/22 07:05 Immature Gran # (Auto) 0.05 K/uL (0.00-0.02) H 04/05/22 07:05 PT 11.0 Seconds (9.0-12.0) 04/05/22 07:05 INR 1.0 (0.9-1.1) 04/05/22 07:05 Sodium 134 mmol/L (136-145) L 04/06/22 06:07 Potassium 5.0 mmol/L (3.5-5.1) D 04/06/22 06:07 Chloride 101 mmol/L (98-107) 04/06/22 06:07 Carbon Dioxide 24 mmol/L (21-32) 04/06/22 06:07 Anion Gap 9 (3-11) 04/06/22 06:07 BUN 15 mg/dl (6-23) 04/06/22 06:07 Creatinine 0.74 mg/dl (0.6-1.2) 04/06/22 06:07 Est Cr Clr Drug Dosing 52.7 ml/min 04/06/22 06:07 Est GFR ( Amer) 90.6 ml/min 04/06/22 06:07 Est GFR (Non-Af Amer) 78.1 ml/min 04/06/22 06:07 BUN/Creatinine Ratio 20.3 (10-20) H 04/06/22 06:07 Glucose 243 mg/dl (70-99(Fasting)) H 04/06/22 06:07 POC Glucose 255 mg/dl (70-99) H 04/06/22 08:33 Calcium 9.6 mg/dl (8.5-10.1) 04/06/22 06:07 Magnesium 1.2 mg/dl (1.7-2.4) L 04/06/22 06:07 25-OH Vitamin D Total 31.0 ng/ml (30-100) 04/06/22 06:07 Urine Color Yellow 04/04/22 23:20 Urine Appearance Clear (Clear) 04/04/22 23:20 Urine pH 6.0 (4.5-7.5) 04/04/22 23:20 Ur Specific [place] 1.024 (1.000-1.030) 04/04/22 23:20 Urine Protein Negative (Negative) 04/04/22 23:20 Urine Glucose (UA) 3+ (Negative) H 04/04/22 23:20 Urine Ketones 3+ (Negative) H 04/04/22 23:20 Urine Blood 2+ (Negative) H 04/04/22 23:20 Urine Nitrite Negative (Negative) 04/04/22 23:20 Urine Bilirubin Negative (Negative) 04/04/22 23:20 Urine Urobilinogen Negative (Negative) 04/04/22 23:20 Ur Leukocyte Esterase Trace (Negative) H 04/04/22 23:20 Urine WBC (Auto) 10-30 /hpf (0-5) H 04/04/22 23:20 Urine RBC (Auto) 10-30 /hpf (0-4) H 04/04/22 23:20 U Hyaline Cast (Auto) 1-5 /lpf (0-5) 04/04/22 23:20 U Epithel Cells (Auto) 20-30 /lpf (0-5) H 04/04/22 23:20 Urine Bacteria (Auto) Negative (Negative) 04/04/22 23:20 Blood Type AB Positive 04/05/22 07:05 Antibody Screen NEGATIVE 04/05/22 07:05 Impressions Hip X-Ray 04/05/22 19:12 LEFT HIP 2 VIEWS CLINICAL HISTORY: Postoperative examination. FINDINGS: AP and crosstable lateral views of the left hip are compared to study dated 04/04/2022. The skeletal structures are osteopenic. There has been intertrochanteric and intramedullary nail fixation of a comminuted intertrochanteric fracture with anglican of near-anatomic alignment. A single cortical lag screw transfixes the distal end of the nail. No new fracture is identified. The visualized left hemipelvis appears intact. Mild degenerative joint space narrowing is noted in the left hip. Skin clips, soft tissue gas, and edema overlying the left hip are expected postoperative changes. IMPRESSION: Expected postoperative findings status post open reduction and internal fixation of a left proximal femoral fracture. Electronically signed by: Tim Claire M.D. 04/05/2022 7:53 PM
--- NOTE | 2022-04-06 11:27 | Electrocardiogram Report ---
Test Reason : Blood Pressure : / mmHG Vent. Rate : 108 BPM Atrial Rate : 108 BPM P-R Int : 146 ms QRS Dur : 076 ms QT Int : 326 ms P-R-T Axes : 038 015 044 degrees QTc Int : 436 ms Sinus tachycardia Otherwise normal ECG No previous ECGs available Confirmed by Arnulfo Black ([id number]) on 04/06/2022 11:27:38 AM Referred By: Adryan Burrell Confirmed By:Arnulfo Black
[2022-04-06] MEDS: CHOLECALCIFEROL 1,000 UNITS 25 MCG TAB PO SCH (11:59)
[2022-04-06] MEDS: POLYETHYLENE (MIRALAX) 17 GM PACK PO SCH (15:07)
[2022-04-06] MEDS ORDERED: FUROSEMIDE INJ 20 MG/2 ML VIAL IV ONE (17:49)
[2022-04-06] MEDS ORDERED: LANTUS PER UNIT CHARGE SQ ONE (17:50)
[2022-04-06] MEDS: ATORVASTATIN 20 MG TAB PO SCH (20:34)
[2022-04-06] MEDS: DOCUSATE SODIUM/SENNA 50/8.6MG TAB PO SCH (20:34)
[2022-04-06] MEDS: LATANOPROST 0.005% OP SOLN 2.5 ML BTL OP SCH (20:35)
[2022-04-07 07:56] LABS: Hematocrit (blood only) 34.4 % (34.1-44.9); Hemoglobin 11.7 g/dl (12.0-16.0); Mean Corpuscular Hemoglobin 31.7 pg (25.0-34.0); Mean Corpuscular Volume 93.2 fL (80.0-100.0); Mean Platelet Volume 10.6 fL (9.4-12.3); Platelet Count 216 K/uL (130-400); RDW Coefficient of Variation 12.5 % (11.5-14.5); RDW Standard Deviation 42.5 fL (36.4-46.3); Red Blood Count 3.69 M/uL (3.93-5.22); White Blood Count 10.65 K/ul (4.8-10.8)
[2022-04-07 08:19] LABS: BUN Creatinine Ratio 29.5 (10-20); Calcium 9.7 mg/dl (8.5-10.1); Creatinine Clr Calc Pharmacy 41.1 ml/min; Est GFR (Non-African American) 57.8 ml/min; Magnesium 1.8 mg/dl (1.7-2.4); Potassium 4.6 mmol/L (3.5-5.1)
[2022-04-07] MEDS: INSULIN ASPART PER UNIT SC SCH ×4 (08:34→21:29)
[2022-04-07] MEDS: ASPIRIN 81 MG ECTAB PO SCH ×2 (08:35→21:22)
[2022-04-07] MEDS: CHOLECALCIFEROL 1,000 UNITS 25 MCG TAB PO SCH (08:35)
[2022-04-07] MEDS: LANTUS PER UNIT CHARGE SQ SCH (08:37)
[2022-04-07] MEDS: POLYETHYLENE (MIRALAX) 17 GM PACK PO SCH (08:37)
--- NOTE | 2022-04-07 10:12 | Orthopedic Progress Note ---
Date of Service April 07, 2022 Assessment & Plan (1) Closed left hip fracture: Plan: Postoperative day #2 status post left short cephalomedullary nailing for intertrochanteric hip fracture. -Remain toe-touch weightbearing on the left leg -Therapy daily -Patient requesting transfer to [place] after discharge -Orthopedics will sign off for now. Please call with questions. Orthopedic- specific instructions are in the discharge section. -Follow-up with Dr. Franklin in orthopedic surgery clinic 10 to 14 days after surgery. Please call [facility] at [phone] to make an appointment Admission and Anticipated Discharge Date Admission Date: April 04, 2022 Subjective Patient resting comfortably in her chair. Pain in her left hip is well controlled. She was up standing with physical therapy, and ambulated to the bathroom, but has not yet ambulated in the hallway. She feels like she is moving better today. Physical Exam Physical Exam: Examination of the left hip reveals minimal swelling. Her dressings have scant serosanguineous drainage. Motor and sensory functions intact distally. Results & Data ([facility]) Vital Signs (Past 12 Hours) Vital Signs Temp Pulse Pulse Resp BP Pulse Ox Pulse Ox 04/07/22 07:00 94 04/07/22 07:08 37.1 C 107 H 14 110/72 94 04/06/22 23:32 37.7 C H 105 H 16 130/74 91 O2 Del Method O2 Del Method 04/07/22 07:00 Room Air 04/07/22 07:08 Room Air 04/06/22 23:32
[2022-04-07] MEDS ORDERED: PHARMACY GLYCEMIC MGMT CONSULT PRN (10:20)
[2022-04-07] MEDS ORDERED: LANTUS PER UNIT CHARGE SQ ONE (12:30)
--- NOTE | 2022-04-07 14:21 | Pharmacy Report ---
Pharmacy Glycemic Short Note 2 - Date of Service April 07, 2022 - Glycemic Short BSG Results (Last 24 hours): 04/06/22 04/06/22 04/06/22 17:15 17:17 20:44 Glucose POC Glucose 344 H* 300 H 283 H 04/07/22 04/07/22 04/07/22 07:31 08:31 12:04 Glucose 236 H POC Glucose 222 H 394 H* 04/07/22 12:06 Glucose POC Glucose 407 H* OUTPATIENT ANTIDIABETIC REGIMEN: * Amaryl 4 mg PO BID * Metformin 1000 mg PO BID * HbA1C ordered ASSESSMENT: * Ms Quevedo is a 77 y/o F with a PMH of T2DM on oral medications who had surgery on 04/05/22. Patient received dexamethasone 4 mg intraoperatively. * Yesterday patient received 57 units of insulin (18 units of basal and 39 units of bolus). BSGs were 255-299-344/300-283 mg/dL. * BSGs today are 222-394/407 * Patient received Lantus 5 units this morning. Give additional 20 units of Lantus as patient is basal deficient. * Tighten CR as patient trended upwards yesterday. Will hold off on tightening CF to prevent overcorrection. * Recheck at 1500. Can continue to correct with CF of 40 - plan to give IV bolus if BSG still > 300 mg/dL. * Restart metformin. PLAN FOR INPATIENT GLYCEMIC CONTROL: * metformin 1 gm PO BID * Basal insulin * Lantus 20 units SQ now then start 25 units daily * Bolus insulin * NovoLog per scale ACHS or Q6hrs while NPO * Goal Range: Low 110 mg/dL - High 140 mg/dL * Correction Factor: 20 mg/dL/unit * Nutritional / Prandial insulin per carb ratio of 1 unit per 6 grams CHO consumed
[2022-04-07] MEDS ORDERED: INSULIN ASPART PER UNIT SC SCH (15:00)
--- NOTE | 2022-04-07 16:15 | Hospitalist Progress Note ---
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 Postop day #2 status post left hip short cephalomedullary nailing for intertrochanteric femur fracture by Dr. Franklin. Toe-touch weightbearing on the left leg per Ortho. DVT prophylaxis with ASA 81 mg twice daily. Vitamin D level checked, low normal 31---placed on supplementation. Continue at discharge. H&H stable. WBC count normalized today at 10.65. UC&S pending. Pain control, antiemetics as needed. Bowel regimen--- last reported BM was 04/03/2022. Patient has received MiraLAX and senna. Patient has an order for MOM, and RN was encouraged to administer this. Encouraged use of I-S. PT/OT consulted. Patient pending rehab placement. She prefers to go to [place]. (2) Hypomagnesemia: Plan: Was 1.2 on 04/06/2022. IV replacement ordered. Now resolved at 1.8. Recheck in AM. (3) Hypertension: Plan: Stable at 115/72. Continue to hold lisinopril 5 mg daily. (4) Diabetes: Plan: Continues to have elevated BSG's while inpatient. Metformin and glyburide on hold. A1c ordered by ortho. Patient on SSI and glargine 5u BID while inpatient. Will consult pharmacy glycemic management for tighter control. (5) Anemia: Plan: Chronic, hemoglobin stable postop. Resume Fe in next 24-48 hours once bowels moving. (6) Hyponatremia: Plan: Mild asymptomatic hyponatremia. Sodium was 134 yesterday and drifting down to 132 today. Not currently on any IVF. Urine osmolality and Urine Na ordered. Continue to monitor. Repeat in AM. Plan Continue inpatient stay for PT/OT. Awaiting rehab placement. Admission and Anticipated Discharge Date Admission Date: April 04, 2022 Subjective 77-year-old female admitted for closed left hip fracture. POD #2 s/p left short cephalomedullary nailing for intertrochanteric hip fracture. Patient complains of some constipation this morning but otherwise feels well. She is hoping for rehab placement at [place] upon discharge. Review of Systems Review of Systems: All systems reviewed & are unremarkable except as noted in Subjective Physical Exam Physical Exam: Temp Pulse Resp BP Pulse Ox O2 Del Method O2 Flow Rate 37.2 C 97 H 12 115/72 90 2 04/07/22 15:03 04/07/22 15:03 04/07/22 15:03 04/07/22 15:03 04/07/22 15:03 04/07/22 15:03 04/06/22 20:35 Patient is afebrile. Vital signs stable. Constitutional: average body habitus; no acute distress Eyes: + anicteric sclerae ENMT: Ears: no hearing impairment Neck: normal visual inspection Respiratory: normal respiratory effort, lungs clear to auscultation Cardiovascular: Rate/Rhythm: regular rate and regular rhythm Vessels: no JVD Extremities: no edema Gastrointestinal (Abdomen): Inspection/Auscultation: normal bowel sounds Percussion/Palpation: abdomen soft; abdomen nontender Musculoskeletal: Head/Neck/Chest: normocephalic and head atraumatic Psychiatric: A+Ox3, euthymic affect Genitourinary: Anguiano catheter in place draining clear, yellow urine Results & Data Results & Data ([facility]) Vital Signs (Past 12 Hours) Vital Signs Temp Pulse Resp BP Pulse Ox Pulse Ox O2 Del Method 04/07/22 15:03 37.2 C 97 H 12 115/72 90 Room Air 04/07/22 11:00 94 04/07/22 07:00 94 04/07/22 07:08 37.1 C 107 H 14 110/72 94 Room Air O2 Del Method 04/07/22 15:03 04/07/22 11:00 Room Air 04/07/22 07:00 Room Air 04/07/22 07:08 PG Care Time/CCT Total # of Minutes Spent Total Time Spent with Patient: Total time spent is greater than 50% in coordination of care (as documented) at patient's floor/unit and/or counseling patient: Coding Level of Care Code 83044 Subseq Hosp Care Lvl 2 Medical Decision Making Moderate Complexity Diagnoses Closed left hip fracture S72.002A Hypomagnesemia E83.42 Hypertension I10 Diabetes E11.9 Anemia D64.9 Hyponatremia E87.1
[2022-04-07] MEDS: metFORMIN HCL 500 MG TAB PO SCH (17:40)
[2022-04-07] MEDS: LATANOPROST 0.005% OP SOLN 2.5 ML BTL OP SCH (21:22)
[2022-04-07] MEDS: DOCUSATE SODIUM/SENNA 50/8.6MG TAB PO SCH (21:22)
[2022-04-07] MEDS: ATORVASTATIN 20 MG TAB PO SCH (21:22)
[2022-04-08] MEDS ORDERED: INSULIN ASPART PER UNIT SC SCH
[2022-04-08] MEDS: CARBOHYDRATES FOR HYPOGLYCEMIA PO PRN ×2 (00:20)
[2022-04-08 07:39] LABS: Basophils # (auto) 0.05 K/uL (0-0.2); Basophils % (auto) 0.5 %; Eosinophils # (auto) 0.06 K/uL (0-0.50); Eosinophils % (auto) 0.6 %; Hematocrit (blood only) 32.4 % (34.1-44.9); Hemoglobin 10.8 g/dl (12.0-16.0); Lymphocytes % (auto) 6.7 %; Mean Corpuscular Hemoglobin 31.1 pg (25.0-34.0); Mean Corpuscular Hgb Conc 33.3 g/dL (32.0-36.0); Mean Corpuscular Volume 93.4 fL (80.0-100.0); Mean Platelet Volume 10.7 fL (9.4-12.3); Monocytes # (auto) 0.94 K/uL (0.24-0.82); Neutrophils # (auto) 8.57 K/uL (1.4-6.5); Neutrophils % (auto) 82.2 %; Platelet Count 224 K/uL (130-400); RDW Coefficient of Variation 12.6 % (11.5-14.5); RDW Standard Deviation 42.8 fL (36.4-46.3); Red Blood Count 3.47 M/uL (3.93-5.22); White Blood Count 10.42 K/ul (4.8-10.8)
[2022-04-08 08:07] LABS: Est GFR (African American) 99.8 ml/min; Est GFR (Non-African American) 86.1 ml/min
[2022-04-08 08:30] LABS: BUN Creatinine Ratio 39.1 (10-20); Calcium 9.6 mg/dl (8.5-10.1); Magnesium 1.8 mg/dl (1.7-2.4)
[2022-04-08] MEDS ORDERED: LANTUS PER UNIT CHARGE SQ ONE (08:45)
[2022-04-08] MEDS ORDERED: LANTUS PER UNIT CHARGE SQ SCH ×2 (09:00→21:00)
[2022-04-08] MEDS: INSULIN ASPART PER UNIT SC SCH ×4 (09:05→20:48)
[2022-04-08] MEDS: CHOLECALCIFEROL 1,000 UNITS 25 MCG TAB PO SCH (09:06)
[2022-04-08] MEDS: metFORMIN HCL 500 MG TAB PO SCH ×2 (09:06→17:29)
[2022-04-08] MEDS: ASPIRIN 81 MG ECTAB PO SCH ×2 (09:06→20:53)
[2022-04-08] MEDS: POLYETHYLENE (MIRALAX) 17 GM PACK PO SCH (09:07)
[2022-04-08 09:52] LABS: Estimated Average Glucose 169 mg/dl; Hemoglobin A1C 7.5 % (4.5-5.6)
--- NOTE | 2022-04-08 13:29 | Pharmacy Report ---
Pharmacy Glycemic Short Note 2 - Date of Service April 08, 2022 - Glycemic Short BSG Results (Last 24 hours): 04/07/22 04/07/22 04/07/22 15:02 17:07 20:57 Glucose POC Glucose 265 H 165 H 201 H 04/07/22 04/07/22 04/08/22 23:55 23:59 00:15 Glucose POC Glucose 47 L* 56 L* 67 L* 04/08/22 04/08/22 04/08/22 00:16 00:35 04:07 Glucose POC Glucose 70 113 H 192 H 04/08/22 04/08/22 04/08/22 07:04 08:17 12:10 Glucose 250 H POC Glucose 270 H 248 H OUTPATIENT ANTIDIABETIC REGIMEN: * Amaryl 4 mg PO BID * Metformin 1000 mg PO BID * HbA1C ordered ASSESSMENT: 04/08 * BSG's have been persistently elevated >180 mg/dL with the exception of a severe hypoglycemic event yesterday to 47 mg/dL overnight. Etiology difficult to determine, as it could be due to overcorrection at HS and/or stacking of doses which occurred 2nd a supplemental dose given with dinner last night - possibly some of both. Could also be due to Lantus, however, dose is not high in terms of weight-based estimate and it would also not be common for Lantus to cause a significant drop from 201 to 47 mg/dL over a couple hours * Will loosen correction factor slightly and redeuce Lantus slightly * To account for post-prandial elevations, will tighten CHO ratio 04/07 * Ms Quevedo is a 77 y/o F with a PMH of T2DM on oral medications who had surgery on 04/05/22. Patient received dexamethasone 4 mg intraoperatively. * Yesterday patient received 57 units of insulin (18 units of basal and 39 units of bolus). BSGs were 255-299-344/300-283 mg/dL. * BSGs today are 222-394/407 * Patient received Lantus 5 units this morning. Give additional 20 units of Lantus as patient is basal deficient. * Tighten CR as patient trended upwards yesterday. Will hold off on tightening CF to prevent overcorrection. * Recheck at 1500. Can continue to correct with CF of 40 - plan to give IV bolus if BSG still > 300 mg/dL. * Restart metformin. PLAN FOR INPATIENT GLYCEMIC CONTROL: * metformin 1 gm PO BID * Basal insulin * Lantus 15 units SQ this AM with an additional 5 units tonight if BSG remains >180 mg/dL * Bolus insulin * NovoLog per scale ACHS or Q6hrs while NPO * Goal Range: Low 110 mg/dL - High 140 mg/dL * Correction Factor: 25 mg/dL/unit * Nutritional / Prandial insulin per carb ratio of 1 unit per 5 grams CHO consumed
[2022-04-08] MEDS ORDERED: SENNA 8.6 MG TAB PO ONE (16:59)
--- NOTE | 2022-04-08 17:04 | Hospitalist Progress Note ---
Date of Service April 08, 2022 Assessment & Plan (1) Closed left hip fracture: Plan: 77yo female with history of DM, HTN presenting from outside facility with left intertrochanteric hip fracture following a ground level fall . Patient states that she has poor balance and falls on occasion (check B12 w/ am labs). Ortho consulted Age-related osteoporotic fracture of the left hip 04/05/22 Left hip short cephalomedullary nailing for intertrochanteric femur fracture - Eliel Franklin M.D. EBL 50cc DVT prophylaxis ASA 81mg BID Vit D level checked, low normal 31-- placed on oral supp, cont at d/c Pain control, antiemetics prn Bowel regimen -- colace, senna added to scheduled miralax PT/OT consulted -- likely to need rehab. CM following (2) Hypertension: Plan: lisinopril on hold (3) Diabetes: Plan: Elevated blood sugar on admit 237. 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 Hold outpatient meds and utilize ISS while inpatient, glargine 5u BID currently Tightened ISS while inpatient as sugars initially controlled but steroids w/ surgery and dextrose in magnesium replacement as BSgs in 200s this afternoon Continue to monitor (4) Anemia: Plan: Chronic, hgb stable post-op (5) Hypomagnesemia: Plan: replete Plan Ppx - SCDs to bilateral LE, ASA 81mg BID Dispo: will require rehab at discharge, bed not until next week Admission and Anticipated Discharge Date Admission Date: April 04, 2022 Subjective pt is doing well some constipation still not ambulating well Review of Systems Review of Systems: Mild distress and fatigue no headache, no visual changes no speech or swallowing issues no chest pain, pressure or palpitations no shortness of breath, cough or wheezes no abdominal pain, nausea or vomiting, diarrhea or constipation no dysuria, hematuria or frequency very minor left hip pain no back pain, CVA tenderness or radicular pain no bruising, bleeding or rashes no focal signs of weakness or numbness or altered sensation no complaints of anxiety or depression.. Physical Exam Physical Exam: The patient appeared well nourished and normally developed. Vital signs as documented. Head exam is normocephalic atraumatic Neck is without JVD, thyromegaly, or carotid bruits. Lungs are clear to auscultation, no focal loss of breath sounds Cardiac exam, Rhythm is regular.. No murmurs, rubs or gallops. Abdominal exam reveals normal bowel sounds, soft non tender, no masses Extremities are nonedematous and both pedal pulses are present Neurologic exam is alert and oriented, no focal loss of strength or sensation Skin is without bruises or rashes Psychologically is without concerns for anxiety or depression.. Results & Data Results & Data ([facility]) Vital Signs (Past 12 Hours) Vital Signs Temp Pulse Resp BP Pulse Ox Pulse Ox O2 Del Method 04/08/22 15:22 97 04/08/22 15:16 97.9 F 94 H 16 131/71 97 04/08/22 11:14 04/08/22 07:30 Room Air 04/08/22 08:14 98.8 F 97 H 16 123/72 92 O2 Del Method 04/08/22 15:22 Room Air 04/08/22 15:16 04/08/22 11:14 Room Air 04/08/22 07:30 04/08/22 08:14 PG Care Time/CCT Total # of Minutes Spent Total Time Spent with Patient: Total time spent is greater than 50% in coordination of care (as documented) at patient's floor/unit and/or counseling patient: Coding Level of Care Code 95239 Subseq Hosp Care Lvl 2 Diagnoses Closed left hip fracture S72.002A Hypertension I10 Diabetes E11.9 Anemia D64.9 Hypomagnesemia E83.42
[2022-04-08] MEDS ORDERED: ALUMINUM/MAGNESIUM SUSP 18 ML, LIDOCAINE VISCOUS 2% SOLN 6 ML, BARCODE IDENTIFIER 1 EACH PO ONE (18:30)
[2022-04-08] MEDS: ATORVASTATIN 20 MG TAB PO SCH (20:52)
[2022-04-08] MEDS: FAMOTIDINE 20 MG TAB PO SCH (20:52)
[2022-04-08] MEDS: DOCUSATE SODIUM/SENNA 50/8.6MG TAB PO SCH (20:53)
[2022-04-08] MEDS: LATANOPROST 0.005% OP SOLN 2.5 ML BTL OP SCH (20:54)
[2022-04-09] MEDS ORDERED: LANTUS PER UNIT CHARGE SQ ONE (08:30)
[2022-04-09] MEDS: INSULIN ASPART PER UNIT SC SCH (08:44)
[2022-04-09] MEDS: ASPIRIN 81 MG ECTAB PO SCH (08:49)
[2022-04-09] MEDS: POLYETHYLENE (MIRALAX) 17 GM PACK PO SCH (08:49)
[2022-04-09] MEDS: FAMOTIDINE 20 MG TAB PO SCH (08:49)
[2022-04-09] MEDS: metFORMIN HCL 500 MG TAB PO SCH (08:50)
[2022-04-09] MEDS: CHOLECALCIFEROL 1,000 UNITS 25 MCG TAB PO SCH (08:50)
[2022-04-09] MEDS ORDERED: SENNA 8.6 MG TAB PO SCH (09:00)
--- NOTE | 2022-04-09 17:09 | Discharge Summary ---
Date of Service April 09, 2022 Admission HPI Per Admitting Provider Casandra Quevedo is a 77yo female with history of DM, HTN presenting after ground level fall resulting in left intertrochanteric hip fracture. Patient was at home this morning and was getting out of her car. She lost her balance and fell onto the sidewalk landing on her left hip. She was unable to get up. Her neighbors helped her up and she was taken to [facility] in [place]. Workup at that facility revealed an intertrochanteric fracture of the left hip. She was subsequently transferred to [facility] for Orthopedic evaluation. Patient presently with no complaints. She reports her pain is well controlled. She denies chest pain, palpitations, SOB. Denies abdominal pain, nausea, vomiting, diarrhea or constipation. She did not hit her head or lose consciousness. No additional complaints at this time. Principal Diagnosis left hip fracture with intertrochanteric nail 04/05/22 Discharge Exam The patient appeared stable Vital signs as documented. Neurologic exam is alert and oriented, no focal loss of strength or sensation Discharge Data Allergies Allergy/AdvReac Type Severity Reaction Status Date / Time No Known Allergies Allergy Unverified 04/04/22 22:40 Consultations 04/04/22 21:49 Consult Orthopedic Surgery Routine Procedures Performed Operation Date: 04/05/22 09:20 Actual Procedures p Left Troch Nailing(Left) - Eliel Franklin M.D. Ordered Studies 04/05/22 16:00 FL hip LT 2-3V Routine Hospital Course (1) Closed left hip fracture: 77yo female with history of DM, HTN presenting from outside facility with left intertrochanteric hip fracture following a ground level fall . Patient states that she has poor balance and falls on occasion (check B12 w/ am labs). Ortho consulted Age-related osteoporotic fracture of the left hip 04/05/22 Left hip short cephalomedullary nailing for intertrochanteric femur fracture - Eliel Franklin M.D. EBL 50cc DVT prophylaxis ASA 81mg BID Vit D level checked, low normal 31 Pain control, antiemetics prn Bowel regimen - PT/OT consulted -- rehab at discharge (2) Hypertension: lisinopril on hold at discharge (3) Diabetes: resume Metformin as well as Glyburide (4) Anemia: Chronic, hgb stable post-op (5) Hypomagnesemia: replete Total Time Total Time Spent Total Time Spent (In Minutes): It required less than 30 minutes to prepare this patient for discharge Discharge Plan Discharge Items Patient Disposition: Transfer Longterm Fac Reason For Visit: FALL-LEFT HIP FRACTURE Discharge Diagnosis: Left hip intertrochanteric femur fracture Activity: Per Instructions section Weightbearing: Left toe touch Weightbearing Comment: with walker Non-emergency contact: Surgeon Call non-emergency contact if: you have any medication questions Follow-up/Referrals: Eliel Franklin M.D. [Physician] - (Follow up with Dr. Franklin in 2 weeks from the day of your surgery for your first post operative visit. ) Adryan Burrell DO [Primary Care Provider] - Diet: Carb Consistent or DM2 Addtl Attending Provider Instructions: . Addtl Video Library Assistant Provider Instructions: [facility] DISCHARGE INSTRUCTIONS: HIP FRACTURE SELF CARE INSTRUCTIONS: A. You are to ambulate with a walker or crutches for approximately 6 weeks. B. You are TOE TOUCH WEIGHT BEARING on your operative lower extremity for at least 6 weeks. C. Wear low heeled shoes with non-slip soles D. Be sure that your floors are free of things that could trip you throw rugs, electrical cords, and small objects. Avoid wet and waxed floors, especially with crutches/walker/cane. E. Try to walk several times a day with rest periods between. F. You may shower 48 hours after surgery and get the incision area wet, but DO NOT soak or submerge incision area in water. (No baths, swimming pools, hot tubs) G. You may have a large, band-aid like dressing over your incision (Aquacel). This will remain on your incision for 7 days, and then can be removed. You CAN shower with this on. If incision is leaking through the dressing, please call the office . H. Do NOT apply soap or any ointment/lotions directly over incision. I. You may use ice as needed to operative site. SPECIAL CARE INSTRUCTIONS: VERY IMPORTANT TO READ AND REVIEW A. You may be at risk for phlebitis or blood clots. a. Wear surgical stockings (FLOYD hose) for 2 weeks after surgery to improve circulation and reduce swelling. b. Take ASPIRIN 81mg orally twice daily for 4 weeks or as directed. This is your blood thinner. B. There are a few signs you need to watch for after you are home. Call [facility] at [phone] if you experience any of the following: a. If you have a temperature of 101 degrees or higher. b. Sudden increase in pain in your hip not relieved by rest or pain medication. c. Any fluid or drainage from the incision; redness of the incision. d. Shortness of breath or chest pain. C. Call your physician if: a. Temperature is greater than 101 degrees (F). b. Pain is not relieved by prescribed pain medications. c. Increase drainage or redness from incision. d. Unanswered questions or concerns. D. Pain Medication: a. You will be prescribed pain medication upon discharge that should last till your first post-operative appointment. b. If you experience nausea and/or skin rash, discontinue this medication and contact our office for an alternative me dication. c. Caution- narcotic pain medication can cause constipation. FOLLOW UP VISIT: Please call [facility] at [phone] to schedule a follow up appointment 10-14 days from the date of your surgery date. Pending Studies at Discharge: No Stand-Alone Forms: [facility]med Skilled Items Patient informed of condition?: Yes DNR: Yes Discharge Level of Care: Skilled Communicable Disease: No Discharge Prognosis: Improving Lines: None Urinary Catheter: No Medications and DC Order Prescriptions: New aspirin 81 mg Tablet,Delayed Release (Dr/Ec) 81 mg PO BID Qty: 60 0RF oxycodone 5 mg Tablet 5 mg PO Q4H PRN (Reason: pain) Qty: 20 0RF polyethylene glycol 3350 [Miralax] 17 gram Powder In Packet 17 g PO DAILY Qty: 30 0RF sennosides [Senokot] 8.6 mg Tablet 17.2 mg PO QAM Qty: 30 0RF Continued latanoprost 0.005 % drops 1 drp ophthalmic (eye) HS atorvastatin 20 mg tablet 20 mg PO HS metformin 1,000 mg tablet 1,000 mg PO BID glimepiride 4 mg tablet 4 mg PO BID multivitamin 1 tab PO DAILY Discontinued Aspir-81 81 mg PO DAILY lisinopril 5 mg tablet 5 mg PO DAILY Discharge Orders: Discharge Order (Routine); Ordered 04/09/22 Ordered By: Juan Claudio/Other Patient Handouts: High Blood Sugar (Hyperglycemia), Hypoglycemia (Low Blood Sugar), Managing Type 2 Diabetes Admission Data Admit Date/Time: 04/04/22 21:51 Attending Provider: Juan Chawla Admit Provider: Pa Cai Primary Care Provider: Adryan Burrell Other Providers: Benigno Cevallos ; Artem Krueger ; Castillo Gonzales ; Alyssa Villareal Thomas J ; Rosi Velazquez ; Angelo Hanson ; Erich Doran ; Naseem Aviles Andrew J. ; Lennox Oglesby ; Gelacio Moscoso ; Ever Escobar ; Sina Hay ; Rosi Martínez ; Eliel Franklin ; Evelia Roberto ; Wan Morin ; Angélica Jones ; Samy Easton Other Interventions: Discharge Summary Assessment (RN) Last Done: 04/09/22 11:04 Coding Level of Care Code D/C DAY MANAGEMENT <30 MINS Diagnoses Closed left hip fracture S72.002A Hypertension I10 Diabetes E11.9 Anemia D64.9 Hypomagnesemia E83.42
== END 2022-04-09 12:26 | DRG 481 ==
LOC: 3N 20:27 → SUATTDRO 21:51